=== PATIENT | female | born 2000 | race Caucasian/White ===

== ENCOUNTER → 2022-02-10 23:50 | Observation (INO) ==
[2022-02-10 23:20] LABS: Bilirubin,Urine Negative (Negative); Blood,Urine Negative (Negative); Clarity,Urine Clear (Clear); Color,Urine Light-Yellow (Yellow); Glucose,Urine (UA) Normal (Normal); Ketones,Urine Negative (Negative); Leukocyte Esterase,Urine Negative (Negative); Nitrite,Urine Negative (Negative); PH,Urine 6.5 pH Units (5.0-8.0); Protein,Urine Negative (Neg-Trace); Specific Gravity,Urine 1.019 (1.010-1.025); Urobilinogen,Urine Normal (Normal)
== END | disposition home or self-care (01) ==
LOC: 1NENULAB
PROVIDERS: ADMIT Registered Nurse; ATTEND Registered Nurse

== ENCOUNTER → 2022-03-27 14:21 | Observation (INO) ==
[2022-03-27 13:35] LABS: Bilirubin,Urine Negative (Negative); Blood,Urine Negative (Negative); Clarity,Urine Clear (Clear); Color,Urine Light-Yellow (Yellow); Glucose,Urine (UA) Normal (Normal); Ketones,Urine Negative (Negative); Leukocyte Esterase,Urine Negative (Negative); Nitrite,Urine Negative (Negative); PH,Urine 6.5 pH Units (5.0-8.0); Protein,Urine Negative (Neg-Trace); Specific Gravity,Urine 1.012 (1.010-1.025); Urobilinogen,Urine Normal (Normal)
[2022-03-27 13:58] LABS: Candida DNA Not Detected (Not Detect); Gardnerella DNA Not Detected (Not Detect); Trichomonas DNA Not Detected (Not Detect)
== END | disposition home or self-care (01) ==
LOC: 1NENULAB
PROVIDERS: ADMIT Advanced Practice Midwife; ATTEND Advanced Practice Midwife

== ENCOUNTER → 2022-04-16 18:35 | Observation (INO) ==
[2022-04-16 17:21] LABS: Bilirubin,Urine Negative (Negative); Blood,Urine Negative (Negative); Clarity,Urine Clear (Clear); Color,Urine Colorless (Yellow); Glucose,Urine (UA) Normal (Normal); Ketones,Urine 20 mg/dL (Negative); Leukocyte Esterase,Urine Negative (Negative); Nitrite,Urine Negative (Negative); Protein,Urine Negative (Neg-Trace); Specific Gravity,Urine 1.008 (1.010-1.025); Urobilinogen,Urine Normal (Normal)
== END | disposition home or self-care (01) ==
LOC: 1NENULAB
PROVIDERS: ADMIT Obstetrics & Gynecology; ATTEND Obstetrics & Gynecology

== ENCOUNTER → 2022-05-20 01:03 | Observation (INO) ==
[2022-05-19 23:42] LABS: Bilirubin,Urine Negative (Negative); Blood,Urine Negative (Negative); Clarity,Urine Clear (Clear); Color,Urine Colorless (Yellow); Glucose,Urine (UA) Normal (Normal); Ketones,Urine Negative (Negative); Leukocyte Esterase,Urine Negative (Negative); Nitrite,Urine Negative (Negative); PH,Urine 6.5 pH Units (5.0-8.0); Protein,Urine Negative (Neg-Trace); Specific Gravity,Urine 1.013 (1.010-1.025); Urobilinogen,Urine Normal (Normal)
[2022-05-20 00:50] LABS: Candida DNA Not Detected (Not Detect); Gardnerella DNA Not Detected (Not Detect); Trichomonas DNA Not Detected (Not Detect)
== END | disposition home or self-care (01) ==
LOC: 1NENULAB
PROVIDERS: ADMIT Registered Nurse; ATTEND Registered Nurse

== ENCOUNTER → 2022-06-10 00:20 | Observation (INO) | END | disposition home or self-care (01) | LOC: 1NENULAB | PROVIDERS: ADMIT Registered Nurse; ATTEND Registered Nurse ==

== ENCOUNTER 2022-06-10 22:00 | Inpatient (IN) ==
[2022-06-10] MEDS ORDERED: Naloxone 0.4 MG/ML INJ IVP PRN (22:11)
[2022-06-10] MEDS ORDERED: Metoclopramide 10 MG/2 ML VIAL IVP PRN (22:11)
[2022-06-10] MEDS ORDERED: Famotidine 20 MG/2 ML VIAL IVP PRN (22:11)
[2022-06-10] MEDS ORDERED: *HR* FentaNYL (PF) 100 MCG/2 ML VIAL IVP PRN (22:11)
[2022-06-10] MEDS ORDERED: Penicillin G Potassium 5,000,000 UNIT in 0.9 % Sodium Chloride Mini Bag 100 ML IVPB ONE (22:11)
[2022-06-10] MEDS ORDERED: Ondansetron 4 MG/2 ML VIAL IVP PRN (22:11)
[2022-06-10] MEDS ORDERED: Azithromycin 500 MG in 0.9 % Sodium Chloride 250 ML IVPB PRN (22:11)
[2022-06-10] MEDS ORDERED: Penicillin G Potassium 2,500,000 UNIT/105 ML MLS IVPB SCH (22:15)
[2022-06-10] MEDS ORDERED: Ringers Solution, Lactated 1,000 ML ONE (23:11)
[2022-06-10] MEDS: miSOPROStoL 25 MCG TABLET PO PRN (23:49)
[2022-06-11] MEDS ORDERED: Vancomycin 1,500 MG/265 ML IV.SOLN IVPB ONE
[2022-06-11 00:05] LABS: Basophils % 0.3 %; Eosinophils # 0.1 K/mcL (0.0-0.6); Eosinophils % 0.9 %; Hematocrit 34.5 % (35.3-44.9); Hemoglobin 11.6 g/dL (11.5-15.4); Immature Granulocytes % 0.5 % (0-4); Lymphocytes # 2.8 K/mcL (0.6-4.6); Lymphocytes % 25.8 %; Mean Corpuscular HGB Conc 33.6 g/dL (31.6-35.5); Mean Corpuscular Hemoglobin 29.7 pg (28.0-33.3); Mean Corpuscular Volume 88.5 fL (83.0-100.0); Mean Platelet Volume 13.6 fL (9.4-12.4); Monocytes # 0.7 K/mcL (0.0-1.3); Monocytes % 6.8 %; Neutrophils # 7.1 K/mcL (1.6-8.9); Platelet Count 235 K/mcL (140-400); Red Cell Distribution Width 12.8 % (11.5-14.5); Segmented Neutrophils % 65.7 %; White Blood Count 10.8 K/mcL (4.3-11.1)
[2022-06-11 00:14] LABS: Amphetamine Screen,Urine Negative ng/mL (Cutoff=1000); Barbiturate Screen,Urine Negative ng/mL (Cutoff=200); Benzodiazepines Screen,Urine Negative ng/mL (Cutoff=200); Cannabinoid Screen,Urine Negative ng/mL (Cutoff = 50); Cocaine Screen,Urine Negative ng/mL (Cutoff= 300); Opiate Screen,Urine Negative ng/mL (Cutoff=300); Phencyclidine Screen,Urine Negative ng/mL (Cutoff=25)
[2022-06-11] MEDS ORDERED: EPHEDrine 50 MG/ML VIAL IVP PRN (01:11)
[2022-06-11] MEDS ORDERED: *HR* FentaNYL (PF) 100 MCG/2 ML VIAL EP ONE (01:11)
[2022-06-11] MEDS ORDERED: Ropivacaine/PF 0.2% 20 ML VIAL EP ONE (01:11)
[2022-06-11] MEDS ORDERED: Epidural Premix (fent/bupiv) 110 ML EP SCH (01:15)
[2022-06-11 01:19] LABS: Alanine Aminotransferase 7 Units/L (7-52); Aspartate Amino Transferase 12 Units/L (13-39); Blood Urea Nitrogen 10 mg/dL (6-20); Lactate Dehydrogenase 120 Units/L (140-271); Uric Acid 5.2 mg/dL (2.3-7.6)
[2022-06-11 01:49] LABS: BUN/Creatinine Ratio 16 (6-26); Creatinine,Urine 32 mg/dL
[2022-06-11] MEDS: miSOPROStoL 25 MCG TABLET PO PRN (04:26)
[2022-06-11] MEDS ORDERED: Ringers Solution, Lactated 1,000 ML ONE ×3 (05:12→13:14)
[2022-06-11] MEDS ORDERED: Oxytocin 30 UNIT/503 ML BAG IVC SCH (07:45)
[2022-06-11] MEDS: *HR* Nalbuphine 10 MG/ML AMPUL IV PRN ×2 (08:04→10:51)
[2022-06-11] MEDS ORDERED: Vancomycin 1,250 MG/262.5 ML IV.SOLN IVPB SCH (12:00)
[2022-06-11] MEDS ORDERED: Vancomycin 1,750 MG/517.5 ML IV.SOLN IVPB SCH (12:00)
[2022-06-11] MEDS ORDERED: Ondansetron ODT 4 MG TAB.RAPDIS SL PRN (17:50)
[2022-06-11] MEDS ORDERED: Measles/Mumps/Rubella Vacc 0.5 ML VIAL SQ PRN (17:50)
[2022-06-11] MEDS ORDERED: Lanolin 7 G OINT...G. TP PRN (17:50)
[2022-06-11] MEDS ORDERED: OXYTOCIN/RINGERS LACTATE 10 UNIT/166.6 ML BAG IVC ONE (17:50)
[2022-06-11] MEDS ORDERED: Rho Immune Globulin 1,500 UNIT SYRINGE IM PRN (17:50)
[2022-06-11] MEDS ORDERED: Benzocaine/Menthol 56 GM AEROSOL SPRAY TP PRN (17:50)
[2022-06-11] MEDS: Acetaminophen 325 MG TABLET PO SCH (19:48)
[2022-06-11] MEDS: Ibuprofen 600 MG TABLET PO SCH (19:48)
[2022-06-12 03:59] LABS: Basophils % 0.3 %; Hematocrit 31.9 % (35.3-44.9)
[2022-06-12 04:01] LABS: Eosinophils % 0.4 %; Hemoglobin 10.8 g/dL (11.5-15.4); Immature Granulocytes % 0.4 % (0-4); Immature Platelets 15.3 % (1.1-6.1); Lymphocytes # 2.2 K/mcL (0.6-4.6); Lymphocytes % 20.3 %; Mean Corpuscular HGB Conc 33.9 g/dL (31.6-35.5); Mean Corpuscular Hemoglobin 29.8 pg (28.0-33.3); Mean Corpuscular Volume 87.9 fL (83.0-100.0); Mean Platelet Volume 13.1 fL (9.4-12.4); Monocytes % 9.3 %; Neutrophils # 7.4 K/mcL (1.6-8.9); Platelet Count 171 K/mcL (140-400); Red Blood Count 3.63 M/mcL (3.82-4.97); Red Cell Distribution Width 12.6 % (11.5-14.5); Segmented Neutrophils % 69.3 %; White Blood Count 10.7 K/mcL (4.3-11.1)
[2022-06-12] MEDS: Acetaminophen 325 MG TABLET PO SCH ×2 (05:05→11:07)
[2022-06-12] MEDS: Ibuprofen 600 MG TABLET PO SCH ×2 (05:05→11:08)
[2022-06-12] MEDS ORDERED: NON-FORMULARY MEDICATION 1 EACH EACH (Prenatal Vitamin Tablet 1 TAB) PO SCH (09:00)
[2022-06-12] MEDS ORDERED: Prenatal Vit/FA 1 EACH TABLET PO SCH (09:00)
[2022-06-12 14:44] VITALS: PULSE 85
[2022-06-12 17:12] VITALS: BP 141/104; TEMP 98.1; O2SAT 100
== END 2022-06-12 18:15 | disposition home or self-care (01) | DRG 560 ==
LOC: 1NENULAB 22:09 → 1NENUOBS 06-11 11:55 → 1NENULAB 06-11 12:04 → 1NENUOBS 06-11 17:38
PROVIDERS: ADMIT Obstetrics & Gynecology; ATTEND Obstetrics & Gynecology